=== PATIENT | male | born 1935 | race Caucasian/White ===

== ENCOUNTER 2017-01-18 15:48 | Emergency (ER) | payer MEDICARE ==
[~2017-01-18] VITALS: Ht 177.8 cm; Wt 79.0 kg
[2017-01-18 16:01] VITALS: BP 138/84; PULSE 87; RESP 16; TEMP 98.4; O2SAT 94
[2017-01-18] MEDS ORDERED: ASPI81CH CHEW (16:10)
[2017-01-18] MEDS ORDERED: COQ-30CA2 (16:10)
[2017-01-18] MEDS ORDERED: MULT1TAB85 PO (16:10)
--- NOTE | 2017-01-18 16:26 | PD ---
HPI Chief Complaint: Laceration/Skin Injury Time Seen by Provider: 16:19 Travel History International Travel<30 days: No Contact w/Intl Traveler<30days: No Traveled to known affect area: No History of Present Illness HPI 81-year-old male presents to the ED via private car after fall from 3 foot ladder. The patient states he caught his flip flop on a ladder rung and fell off the ladder landing on a "escrow secretary chair" on his head. He states that he "saw stars" for a moment but denies loss of consciousness. On presentation he denies headache, dizziness, vision changes, neck pain, chest pain, shortness breath, abdominal pain, nausea, vomiting, back pain, numbness, tingling, weakness, limitations range of motion a loss of strength of the extremities. He is unsure of the date of his last tetanus immunization. He denies chronic health problems and takes no daily medications. He covered the laceration with a washcloth before presentation. PFSH Past Medical History Hx Anticoagulant Therapy: Yes (ASA 81MG DAILY) Past Surgical History Cardiac Surgery: Yes (stents x3) Social History Alcohol Use: No Tobacco Use: No Substance Use: No Allergies-Medications (Allergen,Severity, Reaction): Coded Allergies: No Known Allergies (Unverified , 01/18/17) Reported Meds & Prescriptions Reported Meds & Active Scripts Active Reported Multivitamin Men (Multiple Vitamins W/ Minerals) 1 Tab Tab 1 Tab PO DAILY Coq-10 (Coenzyme Q10 (Ubidecarenone)) 30 Mg Cap Unknown Dose Aspirin 81 Mg Chew 81 Mg CHEW DAILY Review of Systems Except as stated in HPI: all other systems reviewed are Neg Physical Exam Narrative GENERAL: Well-nourished, well-developed white male in no acute distress. Sitting up in the stretcher, alert, oriented in no acute distress. SKIN: Warm and dry. There is a 3 cm laceration just superior to the left eyebrow. Thorough evaluation reveals no other edema, ecchymosis, abrasion, or laceration of the skin. HEAD: Normocephalic. Atraumatic. No raccoon eyes or rosas sign. No tenderness to palpation of the facial bones or skull. No bony step-offs. No malocclusion of the teeth. EYES: No scleral icterus. No injection or drainage. PERRLA. EOMI. ENT: Pearly malagon tympanic membrane is bilaterally. Nasal mucosa is moist. Oropharynx without erythema, edema or exudate. NECK: Supple, trachea midline. No JVD or lymphadenopathy. No midline tenderness to palpation. Patient retains full, active, painless range of motion of the neck. CARDIOVASCULAR: Regular rate and rhythm without murmurs, gallops, or rubs. 2+ DP and radial pulses bilaterally. CHEST: No tenderness to palpation of the precordium or rib cage. RESPIRATORY: Breath sounds clear and equal bilaterally. No accessory muscle use. GASTROINTESTINAL: Abdomen soft, non-tender, nondistended. + Bowel sounds MUSCULOSKELETAL: No cyanosis, or edema. No pain elicited or pelvic instability with hip rocking. No tenderness to palpation or limitations to range of motion of the joints of the upper and lower extremities bilaterally. NEUROLOGICAL: Awake and alert. Cranial nerves II through XII intact. Motor and sensory grossly within normal limits. 5/5 muscle strength in all muscle groups. Normal speech. BACK: Nontender without obvious deformity. No CVA tenderness. No midline tenderness. Data Data Last Documented VS Vital Signs Date Time Temp Pulse Resp B/P Pulse Ox O2 Delivery O2 Flow Rate FiO2 01/18/17 16:01 98.4 87 16 138/84 94 Orders Tetanus/Diphtheria Tox Adult (Tetanus/Di (01/18/17 16:30) Lidocai-Epi 1%-1:100,000 Inj (Xylocaine- (01/18/17 16:30) Ct Brain W/O Iv Contrast(Rout) (01/18/17 16:18) MDM Medical Decision Making Medical Screen Exam Complete: Yes Emergency Medical Condition: Yes Differential Diagnosis Mechanical fall versus laceration versus skull fracture versus facial fracture versus ICH versus other Narrative Course 81-year-old male presents to the ED via private car after fall from 3 foot ladder. The patient states he caught his flip flop on a ladder rung and fell off the ladder landing on a "escrow secretary chair" on his head. He states that he "saw stars" for a moment but denies loss of consciousness. On presentation he denies headache, dizziness, vision changes, neck pain, chest pain, shortness breath, abdominal pain, nausea, vomiting, back pain, numbness, tingling, weakness, limitations range of motion a loss of strength of the extremities. He is unsure of the date of his last tetanus immunization. Vitals reviewed. Physical exam reveals an alert white male sitting up on the stretcher in no acute distress. Is a 3 cm laceration just superior to the eyebrow but a thorough physical exam is otherwise unremarkable. CT of the head negative for any acute intracranial abnormality per radiology read. Laceration repair was performed. Please see my procedure note for details. Patient was given detailed wound care instructions. He is instructed to utilize OTC meds for pain , monitor for signs of infection, suture removal in 7-10 days. He indicated understanding of the instructions and is agreeable to the care plan. He is stable and discharged home. Procedures Procedure Narrative LACERATION LOCATION: left eyebrow LENGTH: 3cm NUMBER OF STITCHES/SCOTTIE: 9 REPAIR: The area of the laceration was prepped with Betadine and sterilely draped. The laceration was infiltrated with 1% lidocaine with epinephrine. The wound was copiously irrigated and explored without evidence of foreign body , tendon injury or neurovascular injury. The wound was closed using 5-0 Prolene. This was a single layer repair. A sterile dressing was applied. The patient was advised to keep the dressing clean and dry. Patient tolerated the procedure well. Diagnosis Primary Impression: Laceration of left eyebrow without complication Qualified Code: S01.112A - Laceration of left eyebrow without complication, initial encounter Referrals: Primary Care Physician Patient Instructions: Care For Your Stitches (ED), General Instructions Additional Instructions: Rest, hydrate. Do not change the dressing for 24 hours. You may shower normally after 24 hours. Do not submerge the wound. After bathing pat of wound dry. Allow the wound to air dry for 10-15 minutes. Apply a thin layer of antibiotic ointment and a clean, dry dressing. Utilize [id number] pain medications, as described on the label, as needed. Keep the wound CLEAN, DRY and COVERED. Suture removal in 7-10 days. Follow-up with your doctors as planned. Return to the ED for any urgent or emergent medical condition. Disposition: 01 DISCHARGE HOME Condition: Stable Mirna Dykes Jan 18, 2017 16:26
[2017-01-18] MEDS ORDERED: TETANUS/DIPHTHERIA TOXOID ADULT 0.5 ML VIAL IM ONE (16:30)
[2017-01-18] MEDS ORDERED: LIDOCAINE 1%/EPINEPHrine 1:100,000 SOLN 20 ML VIAL INFIL ONE (16:30)
--- NOTE | 2017-01-18 17:00 | RADHPO ---
EXAM DATE/TIME: 01/18/2017 16:43 [facility] COMPARISON: No previous studies available for comparison. INDICATIONS : Fall from three foot ladder. Laceration to left forehead. RADIATION DOSE: 64.29 CTDIvol (mGy) MEDICAL HISTORY : None SURGICAL HISTORY : Stent. ENCOUNTER: Initial ACUITY: 1 day PAIN SCALE: 0/10 LOCATION: cranial TECHNIQUE: Multiple contiguous axial images were obtained of the head. Using automated exposure control and adj ustment of the mA and/or kV according to patient size, radiation dose was kept as low as reasonably a chievable to obtain optimal diagnostic quality images. FINDINGS: CEREBRUM: The ventricles are normal for age. No evidence of midline shift, mass lesion, hemorrhage or acute in farction. No extra-axial fluid collections are seen. POSTERIOR FOSSA: The cerebellum and brainstem are intact. The 4th ventricle is midline. The cerebellopontine angle i s unremarkable. EXTRACRANIAL: The visualized portion of the orbits is intact. SKULL: The calvaria is intact. No evidence of skull fracture. CONCLUSION: 1. No acute intracranial abnormality identified. Jose Magana MD on January 18, 2017 at 16:56 Board Certified Radiologist. This report was verified electronically.
== END 2017-01-18 17:54 | disposition home or self-care (01) ==
LOC: PHEFT 15:48
DX: S01.112A Laceration without foreign body of left eyelid and periocular area, initial encounter (principal); W11.XXXA Fall on and from ladder, initial encounter; Z23 Encounter for immunization
CPT/HCPCS: 12013; 70450; 90471; 90714

== ENCOUNTER 2018-10-21 09:43 | Observation (INO) ==
--- NOTE | 2018-10-21 10:07 | ED ---
HPI General Chief Complaint: Neuro Symptoms/Deficit Stated Complaint: rt side tingling Time Seen by Provider: 10/21/18 09:50 Source: patient and family Mode of arrival: ambulatory Limitations: no limitations History of Present Illness HPI Narrative: Patient is an 83-year-old male, past medical history significant for prostate cancer, who presents with complaint of tingling to his right face, right arm starting at the elbows and going distally, and right lower extremity starting at the knee and going distally, that began at approximately 4 AM. He denies any weakness. He states that this is improved and is almost gone. No facial droop, changes in speech, difficulty swallowing. No ataxia nor difficulty walking. No chest pain or shortness of breath. No abdominal pain. No recent trauma. Onset (ago): hour(s) Last Observed Normal: 04:00 Timing confirmed by: spouse Location: Reports right face, right arm and right leg History of same: No Severity: mild Quality: Reports tingling Relieving factors: time Exacerbating factors: none Context: Reports sudden onset On Anticoagulants: No Associated symptoms: Reports denies other symptoms Treatments Prior to Arrival: Reports none Related Data Home Medications Medication Instructions Recorded Confirmed aspirin [Aspir-81] 81 mg PO DAILY 10/21/18 10/21/18 multivitamin [Multiple Vitamins] 1 tab PO DAILY 10/21/18 10/21/18 Allergies Allergy/AdvReac Type Severity Reaction Status Date / Time No Known Allergies Allergy Verified 10/21/18 09:50 Review of Systems ROS: all other systems reviewed are negative [facility] Medical History Medical History History of prostate cancer (Acute) Hx of chronic arthritis (Acute) Hx of degenerative disc disease (Acute) Surgical History Surgical History History of prostate surgery (Acute) Hx of appendectomy (Acute) Social History Social History Substance History: No History of Abuse Second Hand Smoke Exposure: No Smoking Status: Never smoker How Often Do You Have a Drink Containing Alcohol: Never Recent Travel in [facility] within the Last 8 Weeks: No Recent Out of Country Travel within the Last 8 Weeks: No Exam Narrative Exam Narrative: GENERAL: Well-appearing male in no acute distress SKIN: Focused skin assessment warm/dry. No rashes. HEAD: Atraumatic. Normocephalic. EYES: Pupils equal and round. No scleral icterus. No injection or drainage. ENT: No nasal bleeding or discharge. Mucous membranes pink and moist. NECK: Trachea midline. No JVD. CARDIOVASCULAR: Regular rate and rhythm. No murmur appreciated. Intact and equal peripheral pulses. RESPIRATORY: No accessory muscle use. Clear to auscultation. Breath sounds equal bilaterally. GASTROINTESTINAL: Abdomen soft, non-tender, nondistended. Hepatic and splenic margins not palpable. MUSCULOSKELETAL: No obvious deformities. No clubbing. No cyanosis. No edema. NEUROLOGICAL: Awake and alert. No obvious cranial nerve deficits. Motor within normal limits. He reports equal sensation on exam. No ataxia. Normal heel iglesias and finger-nose. No visual field loss. Normal speech. NIH stroke scale of 0. PSYCHIATRIC: Appropriate mood and affect; insight and judgment normal. Course Hospital Course: 1005: I spoke with Dr. Drew, neurologist electrical electronics engineer. I informed her of this patient with complaint of tingling but no actual deficits on exam and NIH stroke scale of 0. She stated that this patient needs a stroke workup but does not need to be a stroke alert as he is outside the window for TPA. Since he has no measurable deficits on exam IR also would not intervene. She stated he would need a regular stroke workup with inpatient carotid ultrasounds, MRI, etc. Initial Documented Vital Signs Temperature 97.0 F L 10/21/18 09:50 Pulse Rate 70 10/21/18 09:50 Respiratory Rate 16 10/21/18 09:50 Blood Pressure 161/78 H 10/21/18 09:50 Pulse Oximetry 93 L 10/21/18 09:50 Last Documented Vital Signs Temperature 97.0 F L 10/21/18 09:50 Pulse Rate 78 10/21/18 10:45 Respiratory Rate 16 10/21/18 10:45 Blood Pressure 136/79 10/21/18 10:45 Pulse Oximetry 94 L 10/21/18 10:45 NIH Stroke Scale NIHSS Time Completed NIHSS Time Completed: 10:01 NIH Stroke Scale Level of Consciousness: 0-Alert Orientation Questions: 0-Answers both correct Responds to Commands: 0-Both tasks correct Gaze Eye Movement: 0-Horizontal movement WNL Visual Weldon: 0-No visual field defect Facial Movement: 0-Normal Motor Functions Arm LEFT: 0-No drift Motor Functions Arm RIGHT: 0-No drift Motor Functions Leg LEFT: 0-No drift Motor Functions Leg RIGHT: 0-No drift Limb Ataxia: 0-No ataxia Sensory Loss: 0-No sensory loss Best Language: 0-Normal Articulation: 0-Normal Extinction or Inattention Sensory: 0-Absent Total: 0 Medical Decision Making MDM Narrative Medical decision making narrative: Patient is an 83-year-old male who presented with complaint of tingling to the right face, right upper extremity, right lower extremity that began approximately 4 AM today. NIH stroke scale on arrival was 0 as he does have intact sensation to palpation and pinprick states it just "feels tingly." Has been improving while in the emergency department. CT head was unremarkable. He has been admitted to Dr. Wilson, hospitalist electrical electronics engineer, for further evaluation and management. Medical Screen Exam Complete: Yes Emergency Medical Condition: Yes Differential Diagnosis Differential Diagnosis: Differential diagnosis includes but is not limited to TIA, stroke, neuropathy. Medical Records Medical records reviewed: Yes I reviewed the patient's medical records. Lab Data Result diagrams: 10/21/18 10:10 10/21/18 10:10 Lab Results 10/21/18 10/21/18 10/21/18 Range/Units 10:10 10:10 10:10 CBC w Diff Auto diff final WBC 6.1 (4.0-11.0) th/mm3 RBC 4.69 (4.50-5.90) mil/mm3 Hgb 13.7 (13.0-17.0) gm/dL Hct 42.2 (39.0-51.0) % MCV 90.0 (80.0-100.0) fL MCH 29.2 (27.0-34.0) pg MCHC 32.4 (32.0-36.0) % RDW 14.9 (11.6-17.2) % Plt Count 168 (150-450) th/mm3 MPV 9.5 (7.0-11.0) fL Neut % (Auto) 59.1 (16.0-70.0) % Lymph % (Auto) 26.7 (9.0-44.0) % [place] % (Auto) 9.6 H (0.0-8.0) % Eos % (Auto) 3.9 (0.0-4.0) % Baso % (Auto) 0.7 (0.0-2.0) % Neut # (Auto) 3.7 (1.8-7.7) th/mm3 Lymph # (Auto) 1.6 (1.0-4.8) th/mm3 [place] # (Auto) 0.6 (0.0-0.9) th/mm3 Eos # (Auto) 0.2 (0.0-0.4) th/mm3 Baso # (Auto) 0.0 (0.0-0.2) th/mm3 WBC Differential . Differential Comment . PT 10.0 (9.8-11.6) sec INR 1.0 Ratio APTT 26.5 (23.4-31.7) sec Sodium 139 (136-145) meq/L Potassium 4.7 (3.5-5.1) meq/L Chloride 106 (98-107) meq/L Carbon Dioxide 25.7 (21.0-32.0) meq/L Anion Gap 7 (5-15) meq/L BUN 38 H (7-18) mg/dL Creatinine 1.70 H (0.60-1.30) mg/dL Estimated GFR 38 L (>89) mL/min Random Glucose 97 (74-106) mg/dL Calcium 8.4 L (8.5-10.1) mg/dL Total Creatine Kinase 132 (39-308) U/L CK-MB (CK-2) 1.7 (0.5-3.6) ng/mL Troponin I Less than 0.02 L (0.02-0.05) ng/mL Urine Color (Yellw/Straw) Urine Clarity (Clear) Urine pH (5.0-8.5) Ur Specific [place] (1.002-1.035) Urine Protein (Neg-Trace) mg/dL Urine Glucose (UA) (Negative) mg/dL Urine Ketones (Negative) mg/dL Urine Occult Blood (Negative) Urine Nitrate (Negative) Urine Bilirubin (Negative) Urine Urobilinogen (Less than 2) mg/dL Ur Leukocyte Esterase (Negative) Urine RBC (0-3) /hpf Ur Squamous Epith Cells (0-5) /hpf Micro UA Comment Ur Microscopic Review Urine Culture Comments 10/21/18 Range/Units 10:20 CBC w Diff WBC (4.0-11.0) th/mm3 RBC (4.50-5.90) mil/mm3 Hgb (13.0-17.0) gm/dL Hct (39.0-51.0) % MCV (80.0-100.0) fL MCH (27.0-34.0) pg MCHC (32.0-36.0) % RDW (11.6-17.2) % Plt Count (150-450) th/mm3 MPV (7.0-11.0) fL Neut % (Auto) (16.0-70.0) % Lymph % (Auto) (9.0-44.0) % [place] % (Auto) (0.0-8.0) % Eos % (Auto) (0.0-4.0) % Baso % (Auto) (0.0-2.0) % Neut # (Auto) (1.8-7.7) th/mm3 Lymph # (Auto) (1.0-4.8) th/mm3 [place] # (Auto) (0.0-0.9) th/mm3 Eos # (Auto) (0.0-0.4) th/mm3 Baso # (Auto) (0.0-0.2) th/mm3 WBC Differential Differential Comment PT (9.8-11.6) sec INR Ratio APTT (23.4-31.7) sec Sodium (136-145) meq/L Potassium (3.5-5.1) meq/L Chloride (98-107) meq/L Carbon Dioxide (21.0-32.0) meq/L Anion Gap (5-15) meq/L BUN (7-18) mg/dL Creatinine (0.60-1.30) mg/dL Estimated GFR (>89) mL/min Random Glucose (74-106) mg/dL Calcium (8.5-10.1) mg/dL Total Creatine Kinase (39-308) U/L CK-MB (CK-2) (0.5-3.6) ng/mL Troponin I (0.02-0.05) ng/mL Urine Color Yellow (Yellw/Straw) Urine Clarity Clear (Clear) Urine pH 5.5 (5.0-8.5) Ur Specific [place] 1.020 (1.002-1.035) Urine Protein Negative (Neg-Trace) mg/dL Urine Glucose (UA) Negative (Negative) mg/dL Urine Ketones Negative (Negative) mg/dL Urine Occult Blood Trace (Negative) Urine Nitrate Negative (Negative) Urine Bilirubin Negative (Negative) Urine Urobilinogen 0.2 (Less than 2) mg/dL Ur Leukocyte Esterase Negative (Negative) Urine RBC 0-3 (0-3) /hpf Ur Squamous Epith Cells 0-5 (0-5) /hpf Micro UA Comment Culture not ind Ur Microscopic Review Microscopic reviewed Urine Culture Comments Culture not ind Imaging Data Attestation: I personally reviewed and interpreted this imaging study as follows : Radiologist's impression: Head CT 10/21/18 09:58 CONCLUSION: Slight chronic small vessel ischemic and atrophic changes and 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 ECG Data EKG Prior to Arrival: No Attestation: I personally reviewed and interpreted this ECG as follows: (Sinus rhythm at a rate of 68 bpm. Incomplete right bundle branch block. No ST or T wave changes.) Discharge Plan Discharge Disposition Patient Disposition: ED Admit(ED Internal Use Only) Discharge Condition Condition: Stable Discharge Order Discharge Orders: ED Use Only Admit Order (Routine); Ordered 10/21/18 Ordered By: Bee Skinner Discharge Details Diagnosis: Transient cerebral ischemia Physicians Team ED Provider: Bee Skinner Primary Care Provider: Madhav Obrien Attending Provider: Henny Gill Other Providers: Amy Drew Discharge Interventions Interventions: Vital Signs Last Done: 10/21/18 10:45 Status ED Status: Admitted Observation Patient
[2018-10-21 10:21] LABS: Baso % (Auto) 0.7 % (0.0-2.0); Eos # (Auto) 0.2 th/mm3 (0.0-0.4); Eos % (Auto) 3.9 % (0.0-4.0); Hematocrit 42.2 % (39.0-51.0); Hemoglobin 13.7 gm/dL (13.0-17.0); Lymph # (Auto) 1.6 th/mm3 (1.0-4.8); Lymph % (Auto) 26.7 % (9.0-44.0); Mean Corpuscular HGB Conc 32.4 % (32.0-36.0); Mean Corpuscular Hemoglobin 29.2 pg (27.0-34.0); Mean Platelet Volume 9.5 fL (7.0-11.0); Mono # (Auto) 0.6 th/mm3 (0.0-0.9); Mono % (Auto) 9.6 % (0.0-8.0); Neut # (Auto) 3.7 th/mm3 (1.8-7.7); Neut % (Auto) 59.1 % (16.0-70.0); Platelet Count 168 th/mm3 (150-450); Red Blood Count 4.69 mil/mm3 (4.50-5.90); Red Cell Distribution Width 14.9 % (11.6-17.2); White Blood Count 6.1 th/mm3 (4.0-11.0)
[2018-10-21 10:32] LABS: Chloride 106 meq/L (98-107); Potassium 4.7 meq/L (3.5-5.1); Sodium 139 meq/L (136-145)
[2018-10-21 10:34] LABS: Calcium 8.4 mg/dL (8.5-10.1)
[2018-10-21 10:35] LABS: Anion Gap 7 meq/L (5-15); Blood Urea Nitrogen 38 mg/dL (7-18); Carbon Dioxide 25.7 meq/L (21.0-32.0); Glucose,Random 97 mg/dL (74-106)
[2018-10-21 10:38] LABS: Glomerular Filtration Rate 38 mL/min (>89)
[2018-10-21 10:40] LABS: Bilirubin,Urine Negative (Negative); Clarity,Urine Clear (Clear); Color,Urine Yellow (Yellw/Straw); Glucose,Urine (UA) Negative (Negative); Leukocyte Esterase,Urine Negative (Negative); Nitrite,Urine Negative (Negative); PH,Urine 5.5 (5.0-8.5); Urobilinogen,Urine 0.2 mg/dL (Less than 2)
[2018-10-21 10:41] LABS: Creatine Kinase 132 U/L (39-308)
[2018-10-21 10:46] LABS: RBC,Urine 0-3 /hpf (0-3); Squamous Epithelial Cell,Urine 0-5 /hpf (0-5)
--- NOTE | 2018-10-21 10:47 | CT ---
EXAM DATE: 10/21/2018 10:43 AM EST AGE/SEX: 83 years / Male INDICATIONS: Right side arm and leg tingling CLINICAL DATA: This is the patient's initial encounter. Patient reports that signs and symptoms have been present for 1 day and indicates a pain score of 0/10. MEDICAL/SURGICAL HISTORY: Carcinoma, prostatic. Prostatectomy. Appendectomy. RADIATION DOSE: 57.21 CTDI (mGy) COMPARISON: [facility], CT BRAIN W/O CONTRAST, 01/18/2017. . TECHNIQUE: CT of the head without contrast. Using automated exposure control and adjustment of the mA and/or kV according to patient size, radiation dose was kept as low as reasonably achievable to ob tain optimal diagnostic quality images. DICOM format image data is available electronically for revi ew and comparison. FINDINGS: There is no evidence for intracranial hemorrhage, mass effect, mass lesions, or edema. The visualize d bony structures appear intact. Slight degree of brain atrophy is seen. Slight periventricular whit e matter changes are seen nonspecific mostly consistent with chronic small vessel ischemic changes. There is an area of low attenuating mainly cystic process almost 9 mm in size in the anterior portion of the basal ganglia on the left side not present previously has the appearance of lacunar infarctio n most likely chronic. 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 Electronically signed by: Yris Francois MD Board Certified Radiologist 10/21/2018 10:46 AM EST
[2018-10-21 10:54] LABS: Creatine Kinase MB 1.7 ng/mL (0.5-3.6)
[2018-10-21 10:57] LABS: Activated Partial Thrombo Time 26.5 sec (23.4-31.7)
--- NOTE | 2018-10-21 12:12 | US ---
EXAM DATE: 10/21/2018 12:03 PM EST AGE/SEX: 83 years / Male INDICATIONS: Transischemic attack. CLINICAL DATA: This is the patient's initial encounter. Patient reports that signs and symptoms have been present for 1 day and indicates a pain score of 0/10. MEDICAL/SURGICAL HISTORY: . Prostate cancer. Arthritis. Degenerative disk. . Prostate surger y. Appendectomy. COMPARISON: No prior exams available for comparison. VELOCITY PARAMETERS: ICA/CCA Ratio: Right 1.0 , Left 1.0 ICA: Right 81 cm/sec, Left 72 cm/sec CCA: Right 82 cm/sec, Left 69 cm/sec ECA: Right 80 cm/sec, Left 83 cm/sec Vertebral: Right 25 cm/sec antegrade, Left 57 cm/sec antegrade FINDINGS: Right Carotid: Mild arteriosclerotic plaque is visualized.The waveforms are within normal limits. Left Carotid: Mild arteriosclerotic plaque is visualized. The waveforms are within normal limits. Other: None. CONCLUSION: No evidence for hemodynamically significant stenosis. Electronically signed by: Yris Francois MD Board Certified Radiologist 10/21/2018 12:11 PM EST
--- NOTE | 2018-10-21 12:23 | P.HPIM ---
History of Present Illness Primary Care Physician: Madhav Obrien MD Chief Complaint: tingling of the right hand and foot History of Present Illness: patient is a 83 y/o male with history of CAD- s/p stent placement, who presented to ER with tingling of the right face, upper and lower extremities that started around 4 this morning. he denies any slurred speech, headache,vision changes,or focal weakness. he doesn't recall any similar episodes in the past. Review of Systems Review of Systems: all other systems reviewed are negative [facility] Medical History Medical History CAD (coronary artery disease) (Acute) History of prostate cancer (Acute) Hx of chronic arthritis (Acute) Hx of degenerative disc disease (Acute) Surgical History Surgical History History of coronary artery stent placement (Acute) History of prostate surgery (Acute) Hx of appendectomy (Acute) Social History Social History Substance History: No History of Abuse Second Hand Smoke Exposure: No Smoking Status: Never smoker How Often Do You Have a Drink Containing Alcohol: Never Recent Travel in [facility] within the Last 8 Weeks: No Recent Out of Country Travel within the Last 8 Weeks: No Immunization History Tetanus Immunization: Unsure Medications and Allergies Allergies Allergy/AdvReac Type Severity Reaction Status Date / Time No Known Allergies Allergy Verified 10/21/18 09:50 Home Medications Medication Instructions Recorded Confirmed Type aspirin [Aspir-81] 81 mg PO DAILY 10/21/18 10/21/18 History multivitamin [Multiple Vitamins] 1 tab PO DAILY 10/21/18 10/21/18 History Active Medications: Active Medications Sodium Chloride (Ns Flush) 2 ml IV.FLUSH PRN PRN PRN Reason: FLUSH AFTER USING IV ACCESS Physical Exam Vital signs: Last Vital Signs Temp 97.0 F L 10/21/18 09:50 Pulse 78 10/21/18 10:45 Resp 16 10/21/18 10:45 BP 136/79 10/21/18 10:45 Pulse Ox 94 L 10/21/18 10:45 Intake & Output 10/19/18 10/20/18 10/21/18 10/22/18 06:59 06:59 06:59 06:59 Weight 81.9 kg Constitutional no acute distress Routine HEENT Exam Eye: Present PERRL Routine Neck Exam Present supple Routine Respiratory Exam Present CTA bilaterally Routine Cardiovascular Exam Present RRR and murmur Comments: diastolic murmur noted in mitral/ LSB area. Routine Abdominal Exam Present soft Routine Extremities Exam Comments: no pedal edema. Routine Neurological Exam Present alert and oriented X3 Results Labs CBC & Chem 7: 10/21/18 10:10 10/21/18 10:10 Imaging Impressions Carotid Doppler Study 10/21/18 00:00 CONCLUSION: No evidence for hemodynamically significant stenosis. Head CT 10/21/18 09:58 CONCLUSION: Slight chronic small vessel ischemic and atrophic changes and 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 Caprini VTE Risk Assessment Caprini VTE Risk Assessment: Moderate/High Risk (score >= 2) Caprini Risk Assessment Model: Point Value = 1 Point Value = 2 Point Value = 3 Point Value = 5 Age 41-60 Minor surgery BMI > 25 kg/m2 Swollen legs Varicose veins or History of unexplained or recurrent spontaneous Oral contraceptives or hormone replacement Sepsis (< 1 month) Serious lung disease, including pneumonia (< 1 month) Abnormal pulmonary function Acute myocardial infarction Congestive heart failure (< 1 month) History of inflammatory bowel disease Medical patient at bed rest Age 61-74 Arthroscopic surgery Major open surgery (> 45 min) Laparoscopic surgery (> 45 min) Malignancy Confined to bed (> 72 hours) Immobilizing plaster cast Central venous access Age >= 75 History of VTE Family history of VTE Factor V Leiden Prothrombin [id number] Lupus anticoagulant Anticardiolipin antibodies Elevated serum homocysteine Heparin-induced thrombocytopenia Other congenital or acquired thrombophilia Stroke (< 1 month) Elective arthroplasty Hip, pelvis, or leg fracture Acute spinal cord injury (< 1 month) Prophylaxis Regimen: Total Risk Factor Score Risk Level Prophylaxis Regimen 0-1 Low Early ambulation 2 Moderate Order ONE of the following: *Sequential Compression Device (SCD) *Heparin 5000 units SQ BID 3-4 Higher Order ONE of the following medications: *Heparin 5000 units SQ TID *Enoxaparin/Lovenox 40 mg SQ daily (WT < 150 kg, CrCl > 30 mL/min) *Enoxaparin/Lovenox 30 mg SQ daily (WT < 150 kg, CrCl > 10-29 mL/min) *Enoxaparin/Lovenox 30 mg SQ BID (WT < 150 kg, CrCl > 30 mL/min) AND/OR *Sequential Compression Device (SCD) 5 or more Highest Order ONE of the following medications: *Heparin 5000 units SQ TID (Preferred with Epidurals) *Enoxaparin/Lovenox 40 mg SQ daily (WT < 150 kg, CrCl > 30 mL/min) *Enoxaparin/Lovenox 30 mg SQ daily (WT < 150 kg, CrCl > 10-29 mL/min) *Enoxaparin/Lovenox 30 mg SQ BID (WT < 150 kg, CrCl > 30 mL/min) AND *Sequential Compression Device (SCD) Assessment and Plan Plan A/P - TIA continue aspirin- check carotid doppler and echo- place on telemetry- consult neurology. -CAD- s/p stent placement resume aspirin. -DVT prophylaxis: subq Heparin. Discussed Condition With: ER physician and the patient. Discharge Planning: home when work-up completed and cleared by neurology.
[2018-10-21 13:30] VITALS: RESP 20
--- NOTE | 2018-10-21 16:37 | ECG ---
Date Performed: 10/21/2018 Time Performed: 10:07:12 PTAGE: 83 years EKG: Sinus rhythm BORDERLINE LEFT AXIS DEVIATION LOW QRS VOLTAGE IN PRECORDIAL LEADS PATTERN CONSISTENT WITH PULMONARY DISEASE INCOMPLETE RIGHT BUNDLE BRANCH BLOCK ABNORMAL ECG NO PREVIOUS TRACING DOCTOR: Cricket Singer Interpretating Date/Time 10/21/2018 16:36:50
[2018-10-21] MEDS: Heparin - SQ 10,000 UNITS/ML Vial SQ SCH (20:35)
--- NOTE | 2018-10-22 08:09 | P.PNIM ---
Subjective Interval history: f/u; TIA in no acute distress. tingling of the right upper and lower extremities has resolved. no new complaints. Physical Exam Vital signs: Last Vital Signs Temp 97 F L 10/22/18 00:00 Pulse 76 10/22/18 00:00 Resp 20 10/22/18 00:00 BP 129/74 10/22/18 00:00 Pulse Ox 94 L 10/22/18 00:00 Intake & Output 10/20/18 10/21/18 10/22/18 10/23/18 06:59 06:59 06:59 06:59 Intake Total 240 / 240 Balance 240 / 240 Weight 79.8 kg Constitutional no acute distress Routine Respiratory Exam Present CTA bilaterally Routine Cardiovascular Exam Present RRR and murmur Comments: diastolic murmur in mitral/ LSB. Routine Abdominal Exam Present soft Routine Extremities Exam Comments: no pedal edema. Routine Neurological Exam Present alert and oriented X3 Results Labs CBC & Chem 7: 10/21/18 10:10 10/21/18 10:10 Imaging Imaging: Impressions Carotid Doppler Study 10/21/18 00:00 CONCLUSION: No evidence for hemodynamically significant stenosis. Head CT 10/21/18 09:58 CONCLUSION: Slight chronic small vessel ischemic and atrophic changes and 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 Assessment and Plan Plan A/P - TIA sinus rhythm on telemtery- carotid doppler with no significant stenosis. echo /lipid panel/ neurology evaluation pending. continue aspirin- -CAD- s/p stent placement resumed aspirin. -renal insufficiency of unknown duration; likely chronic- f/u as outpatient. -DVT prophylaxis: subq Heparin. Discharge Planning: home when work-up completed and cleared by neurology. Progress Note: Quality VTE Deep Vein Thrombosis/Pulmonary Embolism Present on Admission: No
[2018-10-22] MEDS: Heparin - SQ 10,000 UNITS/ML Vial SQ SCH (08:51)
[2018-10-22 08:58] VITALS: BP 133/83; TEMP 96.6; O2SAT 95
[2018-10-22 09:53] LABS: Chol/HDL Ratio 3.32 Ratio; HDL Cholesterol 49.9 mg/dL (40.0-60.0)
--- NOTE | 2018-10-22 10:18 | ECHRPT ---
Indication: CVA/TIA CONCLUSIONS Normal left ventricular size. Mild concentric left ventricular hypertrophy. The left ventricular systolic function is normal with an estimated ejection fraction in the range of 55-60%. Moderate mitral valve regurgitation. Trace aortic valve regurgitation. There is trace tricuspid valve regurgitation. The estimated pulmonary arterial pressure is 39 mmHg. BP: / HR: Rhythm: MEASUREMENTS (Male / Female) Normal Values Technical Quality:Fair 2D ECHO LV Diastolic Diameter PLAX 5.2 cm 4.2 - 5.9 / 3.9 - 5.3 cm LV Systolic Diameter PLAX 3.3 cm IVS Diastolic Thickness 1.2 cm 0.6 - 1.0 / 0.6 - 0.9 cm LVPW Diastolic Thickness 1.1 cm 0.6 - 1.0 / 0.6 - 0.9 cm LV Relative Wall Thickness 0.4 RV Internal Dim ED PLAX 2.6 cm LVOT Diameter 1.7 cm Aortic Root Diameter 2.8 cm LA Systolic Diameter LX 3.4 cm 3.0 - 4.0 / 2.7 - 3.8 cm M-MODE AV Cusp Separation MM 2.1 cm DOPPLER AV Peak Velocity 125.0 cm/s AV Peak Gradient 6.3 mmHg AI Peak Velocity 240.0 cm/s AI Peak Gradient 23.0 mmHg AI Pressure Half Time 430.0 ms LVOT Peak Velocity 63.7 cm/s LVOT Peak Gradient 1.6 mmHg AV Area Cont Eq pk 1.2 cm Mitral E Point Velocity 55.8 cm/s Mitral A Point Velocity 63.2 cm/s Mitral E to A Ratio 0.9 LV E' Lateral Velocity 8.9 cm/s Mitral E to LV E' Lateral Ratio 6.3 LV E' Septal Velocity 6.8 cm/s Mitral E to LV E' Septal Ratio 8.2 TR Peak Velocity 269.0 cm/s TR Peak Gradient 28.9 mmHg Right Atrial Pressure 10.0 mmHg Pulmonary Artery Systolic Pressu 38.9 mmHg Right Ventricular Systolic Press 38.9 mmHg PV Peak Velocity 80.1 cm/s PV Peak Gradient 2.6 mmHg FINDINGS LEFT VENTRICLE Normal left ventricular size. Mild concentric left ventricular hypertrophy. The left ventricular systolic function is normal with an estimated ejection fraction in the range of 55-60%. RIGHT VENTRICLE Normal right ventricular size and systolic function. LEFT ATRIUM The left atrial size is normal. RIGHT ATRIUM The right atrial size is normal. ATRIAL SEPTUM Normal atrial septal thickness without atrial level shunting by limited color doppler interrogation. AORTA The aortic root and proximal ascending aorta are normal in size on limited imaging. MITRAL VALVE Moderate mitral valve regurgitation. AORTIC VALVE Trileaflet aortic valve. Trace aortic valve regurgitation. TRICUSPID VALVE There is trace tricuspid valve regurgitation. The estimated pulmonary arterial pressure is 39 mmHg. PULMONARY VALVE The pulmonary valve is not well visualized. VESSELS The inferior vena cava is normal in size. PERICARDIUM No pericardial effusion. Andrew May MD (Electronically Signed) Final Date:22 October 2018 10:17
--- NOTE | 2018-10-22 12:20 | MB ---
cc: Amy Drew MD DATE: 10/22/2018 REASON FOR CONSULTATION: Possible TIA. HISTORY OF PRESENT ILLNESS: This is a pleasant 83-year-old gentleman with a history of heart disease, stent placement, and follows with Dr. Frias, comes in with tingling of the right face and upper extremity hand without any facial droop or any weakness or speech issues. He states this started about 4 o'clock in the morning while he was pouring his coffee. His states that they were doing a lot of heavy lifting yesterday of boxes with dishes, and other than that he does not do anything very strenuous. He has a known history of heart disease, stent, prostate cancer, arthritis, degenerative disk disease. PAST SURGICAL HISTORY: Stent placement, prostate surgery, appendectomy. SOCIAL HISTORY: No tobacco or alcohol abuse. MEDICINES AT HOME: 1. Baby aspirin. 2. Multivitamins. PHYSICAL EXAMINATION: VITAL SIGNS: Temperature is 96.6, heart rate 103, respiratory rate 20, blood pressure 133/83, saturating 95% on room air. NECK: Supple. I do not appreciate any bruits. HEART: Regular. NEUROLOGIC: He is awake, alert, fluent. Pupils reactive. Visual sharma full. Face symmetrical. Tongue midline. Motor: There is no weakness, drift or leg lag. Cerebellar testing normal. DTRs are normal. Sensory is normal. Currently, gait is normal. He has been ambulating. LABORATORY DATA: CBC is unremarkable. Coag panel was normal. His chemistry: BUN 38, creatinine 1.7, GFR 38, LDL 98, cholesterol 166, triglycerides 90, HDL 49.9. His UA is unremarkable. IMAGING: Reports as far as imaging, CT head showed vascular changes atrophy, a lacune possibly over the anterior portion of the basal ganglia on the left, not seen in 2007. Carotid ultrasound: No hemodynamic significance stenosis. IMPRESSION: Transient ischemic attack like event, most likely recommend increasing his heparin to 325 mg versus certainly can be changed to Plavix 75 mg daily. His echo was done. We will get that report, but certainly he can be discharged home with followup with Cardiology, Neurology, and do an outpatient MRI of the brain. He needs to be on a statin if he is not already on one given his LDL is 98. Likely discharge this afternoon. Outpatient MRI brain and [facility] [place]. Followup with Neurology and Cardiology. MD Nate Lafleur , 11:39 AM , 11:45 AM
[2018-10-22 12:26] VITALS: PULSE 107
== END 2018-10-22 13:00 | disposition home or self-care (01) ==
LOC: PHEDA 09:43 → PHED 09:43 → PH3 11:45
PROVIDERS: ADMIT Internal Medicine; ATTEND Internal Medicine
CPT/HCPCS: 70450; 80048; 80061; 81001; 82550; 82552; 84484; 85025; 85610; 85730; 93005; 93306; 93880; 99285; G0378; J1644